=== PATIENT | female | born 1970 | race Caucasian/White ===

== ENCOUNTER 2017-08-24 07:28 | Emergency (ER) | payer OTHER, BC ==
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
[2017-08-24] MEDS ORDERED: Sodium Chloride 0.9% 10 ML Syringe FLUSH PRN (07:54)
[2017-08-24] MEDS ORDERED: Methocarbamol 500 MG Tab ONE (08:30)
[2017-08-24] MEDS ORDERED: Ketorolac 30 MG/ML SDV IVPUSH PRN (08:41)
[2017-08-24] MEDS ORDERED: Ketorolac 30 MG/ML SDV ONE (08:42)
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
== END 2017-08-24 09:00 | disposition home or self-care (01) ==
LOC: LB.ED 07:28
DX: S00.83XA Contusion of other part of head, initial encounter (principal); S40.022A Contusion of left upper arm, initial encounter; S00.31XA Abrasion of nose, initial encounter; V89.2XXA Person injured in unspecified motor-vehicle accident, traffic, initial encounter
CPT/HCPCS: 36415; 70450; 73502; 80048; 81001; 85025; 96374; 99284; A9270; J1885